=== PATIENT | female | born 1980 | race Caucasian/White ===

== ENCOUNTER → 2021-09-04 | Outpatient (CLI) | payer OTHER ==
[~2021-09-04] MED LIST: BCP; CEPH500 PO; CYCL10 PO; HYDACE5 PO; Pyridium200 MG PO; RXCYCL10 PO; RXHYDACE PO
[2021-09-06 15:11] LABS: HPV 16 Negative (Negative); HPV 18 Negative (Negative); HPV OTHER HR TYPES Negative (Negative)
== END | disposition home or self-care (01) ==
LOC: LAB SHORT 15:14
PROVIDERS: Family Medicine
DX: Z01.419 Encounter for gynecological examination (general) (routine) without abnormal findings (principal)
CPT/HCPCS: 87624; G0123

== ENCOUNTER → 2022-01-03 | Outpatient (CLI) | payer OTHER ==
[2022-01-03 10:32] LABS: Source, Urine Clean Catch
[2022-01-03 13:36] LABS: Appearance, Urine Clear (Clear); Bilirubin, Urine Neg (Neg); Blood, Urine 2+ (Neg); Color, Urine Yellow (P-Yellow); Glucose Qualitative, Urine Neg (Neg); Ketones, Urine Neg (Neg); Leukocyte Esterase, Urine Neg (Neg); Nitrite, Urine Neg (Neg); Protein, Urine Neg (Neg); Urobilinogen, Urine NORM (Normal)
[2022-01-03 13:48] LABS: Bacteria Few /hpf; Squamous Epithelial Cells Few /hpf (Few)
== END | disposition home or self-care (01) ==
LOC: LAB 10:30 → LAB SHORT 10:30
PROVIDERS: Obstetrics & Gynecology
DX: R32 Unspecified urinary incontinence (principal)
CPT/HCPCS: 81001

== ENCOUNTER → 2022-03-29 | Outpatient (CLI) | payer BC, OTHER ==
[~2022-03-29] MED LIST changes: +ALBU2.5V5 INH; +ALBU90OI; +Cyclobenzaprine5 MG; +IBUP400 PO; +LOSARTAN-HCTZ1 EACH; +OXYC5 PO; +SUMA25 PO
== END | disposition home or self-care (01) ==
LOC: LAB SHORT 16:30
DX: R30.9 Painful micturition, unspecified (principal)
CPT/HCPCS: 87086